=== PATIENT | male | born 1960 | race Caucasian/White ===

== ENCOUNTER 2019-10-08 10:07 | Outpatient (CLI) | payer BC, SELFPAY ==
--- NOTE | ~2019-10-08 | CT_ITS ---
EXAMINATION: CT abdomen pelvis w con INDICATION: Prostate cancer TECHNIQUE: Computed tomographic images of the abdomen and pelvis were obtained after the administrati on of 100 cc of Omnipaque 350 intravenous contrast. The dose-length product (DLP) was 1646.47 mGy-cm. Automated exposure control and iterative reconstruction technique were employed. COMPARISON: None available FINDINGS: The lung bases are clear. The heart size is normal. Calcified coronary artery atheroscleros is is noted. The liver, spleen, pancreas, gallbladder, and adrenal glands are normal. There are perip elvic cysts in the otherwise normal left kidney. An 8 mm nonobstructing stone is present in the upper pole of the right kidney. No pathologically enlarged abdominal or pelvic lymph nodes are identified. There is no free intraperitoneal gas or evidence of bowel obstruction. There is calcified atheroscle rosis of the aorta and many of the other arteries. Colonic diverticulosis is present without evidence of diverticulitis. There is a moderate-sized umbilical hernia containing fat. There is moderate lumb ar spondylosis. There are bridging osteophytes at multiple levels in the visualized thoracic spine, c onsistent with diffuse idiopathic skeletal hyperostosis (DISH). IMPRESSION: 1. No evidence of metastatic disease. 2. Nonobstructing right nephrolithiasis. Reviewed, dictated and finalized at location A.
[2019-10-08 11:07] LABS: Estimated Glomerular Filt Rate 56
== END 2019-10-08 10:08 | disposition home or self-care (01) ==
PROVIDERS: PCP Family Medicine; Visit Provider Urology
DX: C61 Malignant neoplasm of prostate (principal); N20.0 Calculus of kidney
CPT/HCPCS: 36415; 74177; Q9967

== ENCOUNTER 2019-10-15 08:58 | Outpatient (CLI) | payer BC, SELFPAY ==
--- NOTE | ~2019-10-15 | XR_ITS ---
EXAMINATION: XR abdomen/kub 1V DATE: 10/15/2019 09:30 INDICATION: Calcium kidney stones TECHNIQUE: A supine view of the abdomen on 2 radiographs was obtained. COMPARISON: CT dated 10/08/2019 FINDINGS: 6 mm stone at the upper pole of the right kidney. No other evident urolithiasis. Normal bowel gas pat tern. Severe lumbar spondylosis. IMPRESSION: 1. Unchanged 6 mm right renal stone. Reviewed, dictated and finalized at location A.
== END 2019-10-15 08:59 | disposition home or self-care (01) ==
PROVIDERS: PCP Family Medicine; Visit Provider Urology
DX: N20.0 Calculus of kidney (principal)
CPT/HCPCS: 74018

== ENCOUNTER 2019-10-24 07:44 | Outpatient (CLI) | payer BC, SELFPAY ==
--- NOTE | 2019-10-24 08:05 | ECG_ITS ---
Measurements Intervals [place] Rate: 73 P: 40 OH: 197 QRS: 49 QRSD: 104 T: 9 QT: 377 QTc: 417 Interpretive Statements SINUS RHYTHM BASELINE ARTIFACT- I, II, III, AVL, AVF NORMAL ECG Electronically Signed On 10-24-2019 8:44:10 CDT by Hoang Mendoza D.O.
[2019-10-24 08:21] LABS: Prothrombin Time 12.4 Seconds (11.1-14.7)
[2019-10-24 08:22] LABS: Partial Thromboplastin Time 25.2 SECONDS (22.3-36.8)
[2019-10-24 08:27] LABS: Blood Urea Nitrogen 25 mg/dL (9-20); Calcium 8.7 mg/dL (8.4-10.2); Carbon Dioxide 25 mmol/L (22-30); Chloride 103 mmol/L (98-107); Estimated Glomerular Filt Rate > 60; Glucose 112 mg/dL (75-110); Potassium 4.4 mmol/L (3.4-5.0); Sodium 137 mmol/L (137-145)
== END 2019-10-24 07:45 | disposition home or self-care (01) ==
PROVIDERS: Anesthesiology; PCP Family Medicine; Visit Provider Urology
DX: I10 Essential (primary) hypertension (principal); N20.0 Calculus of kidney
CPT/HCPCS: 36415; 80048; 85610; 85730; 87086; 93005

== ENCOUNTER 2019-10-26 00:45 | Outpatient (CLI) | payer BC, SELFPAY ==
[2019-10-26 19:00] LABS: SARS-CoV-2 RNA PCR Negative
== END 2019-10-26 00:46 | disposition home or self-care (01) ==
LOC: ANHCOVIDDT 00:45
PROVIDERS: PCP Family Medicine; Visit Provider Urology
DX: Z01.818 Encounter for other preprocedural examination (principal); Z11.59 Encounter for screening for other viral diseases
CPT/HCPCS: 87635; C9803; U0003

== ENCOUNTER 2019-10-28 03:05 | Day surgery (SDC) | payer BC, SELFPAY ==
[2019-10-19 18:58] VITALS: BMI 43.4
[2019-10-28] VITALS (7 sets, daily range): BP systolic 104–146; BP diastolic 54–76; PULSE 70–81; RESP 13–20; TEMP 36.6–36.9; O2SAT 97–100
--- NOTE | ~2019-10-28 | XR_ITS ---
EXAMINATION: XR abdomen/kub 1V DATE: 10/28/2019 06:13 INDICATION: Nephrolithiasis for planned lithotripsy. TECHNIQUE: A supine view of the abdomen on 2 radiographs was obtained. COMPARISON: 10/15/2019 FINDINGS: Unchanged 7 mm stone projecting over the upper pole of the right kidney. No other urolithiasis. Deidra l bowel gas pattern. Mild lumbar levocurvature with severe spondylosis. IMPRESSION: 1. 7 mm right renal stone. Reviewed, dictated and finalized at location A. IMPRESSION: 1. 7 mm right renal stone.
--- NOTE | 2019-10-28 06:39 | WPDANESEPPF ---
Anes - Initial Pre Proc Eval Procedure: Operation Date: 10/28/19 07:30 Proposed Procedures p Right Renal Extracorporeal Shock Wave Lithotripsy - Andrés Baum MD Date/Time: 10/28/19 06:39 Surgeon: Andrés Baum MD Pre Op Diagnosis: Right Renal Stone Patient Data Age: 59 Gender: M Height: 6 ft Weight: 145.45 kg Allergies Allergy/AdvReac Type Severity Reaction Status Date / Time esomeprazole [From Nexium] Allergy Itching Verified 10/20/19 13:36 pantoprazole Allergy Itching Verified 10/20/19 13:36 Home Medications Medication Instructions Recorded Confirmed Type amlodipine 5 mg PO DAILY 10/19/19 10/20/19 History bupropion HCl 300 mg PO DAILY 10/19/19 10/20/19 History carvedilol 6.25 mg PO BID 10/19/19 10/20/19 History dexlansoprazole [Dexilant] 60 mg PO DAILY 10/19/19 10/20/19 History magnesium oxide 500 mg PO DAILY 10/19/19 10/19/19 History wq-gby-qhqfe acid-lutein [Adult 1 tablet PO DAILY 10/19/19 10/20/19 History Multivitamin (w-lutein)] olmesartan-hydrochlorothiazide 1 tablet PO DAILY 10/19/19 10/20/19 History omega 6-dhl-jza-fish oil [Fish Oil] 1 cap PO BID 10/19/19 10/20/19 History rosuvastatin 5 mg PO DAILY 10/19/19 10/20/19 History calcium polycarbophil [FiberCon] 2,500 mg PO DAILY 10/20/19 10/20/19 History diphenhydramine-acetaminophen 2 tablet PO HS 10/20/19 10/20/19 History [Tylenol PM Extra Strength] fluticasone propionate [Flonase 1 spray INTRANASAL DAILY 10/20/19 10/20/19 History Allergy Relief] melatonin 10 mg PO HS 10/20/19 10/20/19 History turmeric root extract 500 mg PO DAILY 10/20/19 10/20/19 History Patient hx anesthesia problems: none Family hx anesthesia problems: none PMFSH Past Medical History Medical History GERD (gastroesophageal reflux disease) Hyperlipidemia Hypertension Social History Social History Smoking status: Heavy tobacco smoker Tobacco type: cigarettes Second hand tobacco smoke exposure: No Smoking end date: 10/11/01 Alcohol intake: never Substance use: former Living arrangements: with family Spiritual care concerns: No Anes - Eval Final PreProcedure Day of Procedure 10/28/19 06:39 Patient weight: morbidly obese Heart: regular rate and rhythm Lungs: decreased breath sounds Airway: Mallampati scale class III Neurological: alert and oriented Last oral intake: >/= 8 hours ASA classification: III Emergent: no Anesthetic plan: proceed Anesthesia type and monitoring: general LMA and standard monitoring Informed Consent: The patient's anesthetic plan and its attendant risks and benefits were discussed with the patient/family/POA. Questions were solicited and answers provided to the satisfaction of the patient/family/POA.
--- NOTE | 2019-10-28 06:42 | WPDHPUPDATE1 ---
History and Physical Update Update Date/Time: 10/28/19 06:42 History and Physical has been reviewed, including an updated exam of the patient. There are NO changes in the patient's condition. Risks, benefits, and alternatives have been discussed and questions answered. Patient agrees to proceed with procedure.
[2019-10-28] MEDS: LACTATED RINGERS 1,000 ML 30 ML IV CONT ×2 (06:50→08:00)
[2019-10-28] MEDS: ceFAZolin 2 GM/D5W 50 ML 2 GM/50 ML BAG IVPB (07:16)
--- NOTE | 2019-10-28 07:54 | PM.PROC ---
Procedure Note - Detailed Date of procedure: 10/28/19 Pre-op diagnosis: Right Renal Stone Post-op diagnosis: same Procedure performed: ESWL of right renal calculus Description of procedure: Patient is taken to the operative suite and correctly identified. Once anesthesia was obtained the stone was localized in both planes. Two thousand five hundred shocks were given stone. Patient tolerated procedure well without complications and was taken recovery room stable condition. This given the standard post litho instructions will follow up in about 10 days with a KUB. If develops any problems he will call so we can deal with appropriately Anesthesia: GLMA Surgeon: Andrés Baum MD Drains: No Packing: No Pathology: none sent Complications: No immediate complications Condition: stable Disposition: PACU
== END 2019-10-28 09:48 | disposition home or self-care (01) ==
PROVIDERS: PCP Family Medicine; Visit Provider Urology
PROC: (CPT 50590; principal; 2019-10-28 07:30)
DX: N20.0 Calculus of kidney (principal); I10 Essential (primary) hypertension; E78.5 Hyperlipidemia, unspecified; K21.9 Gastro-esophageal reflux disease without esophagitis; F17.210 Nicotine dependence, cigarettes, uncomplicated; E66.01 Morbid (severe) obesity due to excess calories; Z68.41 Body mass index [BMI] 40.0-44.9, adult
CPT/HCPCS: 50590; 74018; J0690; J1100; J2250; J2370; J2405; J2704; J3010; J7120

== ENCOUNTER 2019-11-14 10:11 | Outpatient (CLI) | payer BC, SELFPAY ==
--- NOTE | ~2019-11-14 | XR_ITS ---
XR abdomen/kub 1V DATE: 11/14/2019 10:27 INDICATION: Calcium kidney stone. 2 weeks post lithotripsy on the right. TECHNIQUE: AP projection, 2 views COMPARISON: 10/28/2019 KUB 10/08/2019 CT abdomen pelvis with IV contrast material FINDINGS: There is an approximately 4 mm calcification overlying the lower pole right kidney. There i s an approximately 5 mm calcification overlying the right ureteropelvic junction. There is an approxi mately 3-4 mm calcification overlying the right ureterovesical junction area. Noncontrast CT abdomen pelvis may be helpful to confirm suspected faintly calcified right lower pole renal, right ureteropelvic and right ureterovesical junction calculi post right lithotripsy. Diffuse idiopathic skeletal hyperostosis of the thoracic spine. Levoscoliosis and multilevel degenerative disc disease of the lumbar spine. IMPRESSION: Suspected faintly calcified right lower pole renal, right ureteropelvic and right uretero vesical junction calculi post right lithotripsy Reviewed, dictated and finalized at Location A. Reviewed, dictated and finalized at location B. IMPRESSION: Suspected faintly calcified right lower pole renal, right ureterope lvic and right ureterovesical junction calculi post right lithotripsy
== END 2019-11-14 10:12 | disposition home or self-care (01) ==
LOC: ANHIMG 10:16
PROVIDERS: PCP Family Medicine; Visit Provider Urology
DX: N20.0 Calculus of kidney (principal)
CPT/HCPCS: 74018

== ENCOUNTER 2019-11-25 09:39 | Outpatient (CLI) | payer BC, SELFPAY ==
--- NOTE | ~2019-11-25 | XR_ITS ---
XR abdomen/kub 1V DATE: 11/25/2019 10:01 INDICATION: History of right-sided kidney stone TECHNIQUE: AP projection, 2 views COMPARISON: 11/14/2019 KUB FINDINGS: At least 2 calcified calculi are noted at the distal right ureter/right ureterovesical junc tion. The psoas shadows are intact. No visceromegaly is evident. There is diffuse idiopathic skeletal hyperostosis of the thoracic spine. There is multilevel degenera tive disc disease of the lumbar spine. IMPRESSION: At least 2 distal right ureteral calcified calculi Reviewed, dictated and finalized at Location A. Reviewed, dictated and finalized at location A.
== END 2019-11-25 09:40 | disposition home or self-care (01) ==
LOC: ANHIMG 09:43
PROVIDERS: PCP Family Medicine; Visit Provider Urology
DX: N20.1 Calculus of ureter (principal)
CPT/HCPCS: 74018